=== PATIENT | male | born 1945 | race Caucasian/White ===

== ENCOUNTER 2016-03-11 09:30 | Observation (INO) | payer OTHER ==
[~2016-03-11] VITALS: Ht 180.3 cm; Wt 65.6 kg
[2016-03-11] MEDS ORDERED: SOD CHLORIDE 0.9% 1,000 ML IV STA (09:57)
[2016-03-11] MEDS ORDERED: TIOT18CA INHALATION (10:57)
[2016-03-11 11:38] LABS: ALBUMIN 4.6 g/dl (3.3-4.9); CHLORIDE 103 mmol/L (97-110)
[2016-03-11 11:39] LABS: POTASSIUM 5.3 mmol/L (3.5-5.1); SODIUM 145 mmol/L (135-144)
[2016-03-11 11:41] LABS: ALANINE AMINOTRANSFERASE 159 IU/L (13-69); ALBUMIN/GLOBULIN RATIO 0.92; ALKALINE PHOSPHATASE 175 IU/L (42-121); ANION GAP 24 (8-16); BILIRUBIN,INDIRECT 1.7 mg/dl (0-1.1); BILIRUBIN,TOTAL 9.1 mg/dl (0.2-1.3); BLOOD UREA NITROGEN 35 mg/dl (7-20); CARBON DIOXIDE 23 mmol/L (21-31); CREATININE 1.29 mg/dl (0.61-1.24); TOTAL PROTEIN 9.6 g/dl (6.1-8.1)
[2016-03-11 11:42] LABS: GLUCOSE 99 mg/dl (70-220)
[2016-03-11 11:51] LABS: ACETAMINOPHEN < 10.0 ug/ml (10.0-30.0); ASPARTATE AMINO TRANSFERASE 806 IU/L (15-46)
[2016-03-11 11:52] LABS: ETHANOL < 10.0 mg/dl; SALICYLATE < 1.0 mg/dl (5.0-30.0)
[2016-03-11 12:10] LABS: EOSINOPHILS % 0.2 % (0.0-7.0); HEMATOCRIT 45.1 % (42.0-52.0); HEMOGLOBIN 15.4 g/dl (14.0-18.0); LYMPHOCYTES # 0.2 10^3/ul (0.8-2.9); LYMPHOCYTES % 2.1 % (15.0-51.0); MEAN CORPUSCULAR HGB CONC 34.1 g/dl (32.0-37.0); MEAN CORPUSCULAR VOLUME 99.7 fl (82.0-101.0); MEAN PLATELET VOLUME 9.2 fl (7.4-10.4); MONOCYTE # 0.5 10^3/ul (0.3-0.9); NEUTROPHILS % 93.7 % (39.0-77.0); PLATELET COUNT 140 10^3/UL (140-440); RED BLOOD COUNT 4.52 10^6/ul (4.70-6.10); RED CELL DISTRIBUTION WIDTH 14.6 % (11.5-14.5); UNCORRECTED WBC 11.7 10^3/ul (4.8-10.8); WHITE BLOOD COUNT 11.7 10^3/ul (4.8-10.8)
[2016-03-11 12:12] LABS: CONDITION 1; LH ANALYZER COMMENTS 1; SUSPECT 1
--- NOTE | 2016-03-11 14:51 | ERD ---
ER Documentation Chief Complaint Date/Time DATE: 03/11/16 TIME: 14:43 Chief Complaint PT HERE WITH WEAKNESS, DIARRHEA, SKIN TEARS NOTED ON LEFT ARM/BACK OF HEAD HPI Patient presents with generalized weakness that started yesterday. He states normally he is ambulatory and able to walk his little dog around the block. Today he was unable to do so. He called the ambulance he picked him up. He says the skin tear on his arm and on the back of his head is from where the paramedics tried to pick him up. He denies any direct trauma or injuries. He denies any fevers, chest pain, shortness of breath, headache, nausea, vomiting, dysuria, hematuria, diarrhea, abdominal pain, extremity pain, focal weakness, paresthesias. ROS All systems reviewed and are negative except as per history of present illness. Medications Home Meds Reported Medications Tiotropium [place]* (Spiriva*) 18 Mcg Cap.w.dev, 1 CAP INHALATION DAILY, #30 CAP 03/11/16 Allergies Allergies: Coded Allergies: ibuprofen (Verified Allergy, Intermediate, 03/11/16) PMhx/Soc Hepatitis C Medical and Surgical Hx: Unable to obtain Hx Alcohol Use: Yes Hx Substance Use: No Hx Tobacco Use: No Smoking Status: Never smoker FmHx Family History: No diabetes (CAT scan of the abdomen and pelvis shows a 3.5 cm infrarenal aortic aneurysm without any evidence of rupture or dissection.) Physical Exam Vitals Vital Signs Date Time Temp Pulse Resp B/P Pulse Ox O2 Delivery O2 Flow Rate FiO2 03/11/16 09:56 97.5 133 18 156/103 96 Physical Exam Const: [] Head: Atraumatic Eyes: Normal Conjunctiva ENT: Normal External Ears, Nose and Mouth. Neck: Full range of motion..~ No meningismus. Resp: Clear to auscultation bilaterally Cardio: Regular rate and rhythm, no murmurs Abd: Soft, non tender, non distended. Normal bowel sounds Skin: No petechiae or rashes Back: No midline or flank tenderness Ext: No cyanosis, or edema Neur: Awake and alert Psych: Normal Mood and Affect Result Diagram: 03/11/16 1145 03/11/16 1115 Results 24 hrs Laboratory Tests Test 03/11/16 11:15 03/11/16 11:45 03/11/16 12:29 Acetaminophen Level < 10.0ug/ml Alanine Aminotransferase (ALT/SGPT) 159IU/L Albumin 4.6g/dl Albumin/Globulin Ratio 0.92 Alkaline Phosphatase 175IU/L Anion Gap 24 Aspartate Amino Transf (AST/SGOT) 806IU/L Blood Urea Nitrogen 35mg/dl Calcium Level 10.0mg/dl Carbon Dioxide Level 23mmol/L Chloride Level 103mmol/L Creatinine 1.29mg/dl Direct Bilirubin 7.40mg/dl Ethyl Alcohol Level < 10.0mg/dl Globulin 5.00g/dl Glucose Level 99mg/dl Indirect Bilirubin 1.7mg/dl Potassium Level 5.3mmol/L Salicylates Level < 1.0mg/dl Sodium Level 145mmol/L Total Bilirubin 9.1mg/dl Total Protein 9.6g/dl Basophils # 0.010^3/ul Basophils % 0.0% Blood Morphology Comment Eosinophils # 0.010^3/ul Eosinophils % 0.2% Hematocrit 45.1% Hemoglobin 15.4g/dl Lymphocytes # 0.210^3/ul Lymphocytes % 2.1% Mean Corpuscular Hemoglobin 34.0pg Mean Corpuscular Hemoglobin Concent 34.1g/dl Mean Corpuscular Volume 99.7fl Mean Platelet Volume 9.2fl Monocytes # 0.510^3/ul Monocytes % 4.0% Neutrophils # 11.010^3/ul Neutrophils % 93.7% Nucleated Red Blood Cells # 0.010^3/ul Nucleated Red Blood Cells % 0.0/100WBC Platelet Count 62663^3/UL Red Blood Count 4.5210^6/ul Red Cell Distribution Width 14.6% White Blood Count 11.710^3/ul Ammonia 47umol/l Current Medications Medications (Trade) Dose Ordered Sig/Devika Route PRN Reason Start Time Stop Time Status Last Admin Dose Admin Sodium Chloride (NS) 1,000 ml @ 1,000 mls/hr Q1H STAT IV 03/11/16 09:57 03/11/16 10:56 DC 03/11/16 09:57 Procedures/MDM CAT scan of the abdomen and pelvis shows a 3.5 cm infrarenal aortic aneurysm without any evidence of rupture or dissection. There is also some noted dilatation of the intra-and extrahepatic biliary ducts without any obvious obstruction. CT of the brain shows moderate chronic microvascular ischemic changes without any evidence for acute intracranial abnormality. Chest x-ray demonstrates hyperinflation consistent with COPD, no evidence for acute cardiopulmonary process noted. EKG demonstrates a sinus tachycardia at 120 bpm. Patient has an occasional PVC. He is noted to have a right ventricular conduction delay. No evidence for acute ischemia noted. No old EKG available for comparison. I went over all the test results for the patient. He wanted to be discharged home at this time. I told him in order to be discharged he had to be ambulatory. Patient was able to stand and ambulate on his own at this time. He also stated he could call someone to come pick him up. Departure Diagnosis: Primary Impression: Acute weakness Additional Impression: Hepatitis Condition: Fair Additional Instructions: Please call your business data analyst for follow-up appointment in regards to your liver enzymes and hyperbilirubinemia. Please take all of your medications as previously prescribed. Drink plenty of fluids and stay hydrated. Return to the emergency department if at any time he develop any new or worsening symptoms. LISA FRANKLIN Mar 11, 2016 14:51
[2016-03-11 17:41] LABS: ADD UMIC YES; URINE BILIRUBIN (Dip) 3+ (NEGATIVE); URINE BLOOD (Dip) 3+ (NEGATIVE); URINE COLOR AMBER (YELLOW); URINE GLUCOSE (Dip) NEGATIVE (NEGATIVE); URINE KETONES (Dip) TRACE (NEGATIVE); URINE LEUKOCYTE ESTERASE (Dip) NEGATIVE (NEGATIVE); URINE NITRITE (Dip) POSITIVE (NEGATIVE); URINE TOTAL PROTEIN (Dip) 2+ (NEGATIVE); URINE UROBILINOGEN (Dip) 1.0 E.U./dL (0.1-1.0)
[2016-03-11] MEDS ORDERED: ACETAMINOPHEN 325 MG TAB PO PRN (18:00)
[2016-03-11] MEDS ORDERED: ONDANSETRON 4 MG INJ IV PRN (18:00)
[2016-03-11 18:03] LABS: ICTOTEST POSITIVE (NEGATIVE)
[2016-03-11 18:05] LABS: BACTERIA,URINE MANY; SQUAMOUS EPITHELIAL CELL,UR FEW
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
[2016-03-11 18:16] LABS: BARBITURATES NEGATIVE (NEGATIVE); BENZODIAZEPINES POSITIVE (NEGATIVE); CANNABINOIDS NEGATIVE (NEGATIVE); COCAINE NEGATIVE (NEGATIVE); OPIATES NEGATIVE (NEGATIVE)
--- NOTE | 2016-03-11 19:18 | RADRPT ---
PROCEDURE: XR Chest. CLINICAL INDICATION: Dyspnea TECHNIQUE: Single frontal chest x-ray. COMPARISON: None. FINDINGS: No acute infiltrate, pleural effusion or pneumothorax is identified. Lungs are hyperinflated, sugge sting COPD. Cardiomediastinal silhouette is within normal limits. Aortic atherosclerotic calcifica tion is noted. The osseous structures are unremarkable. IMPRESSION: 1. Hyperinflated lungs, suggesting COPD. 2. Aortic atherosclerosis. 3. No evidence of acute cardiopulmonary process. RPTAT: QQ .Sukumar Bello MD, MD Date Time Electronically viewed and signed by .Sukumar Bello MD, MD on 03/11/2016 14:01 .R/
--- NOTE | 2016-03-11 19:18 | RADRPT ---
PROCEDURE: CT Brain without contrast. CLINICAL INDICATION: Altered mental status TECHNIQUE: Routine CT scan of the brain was performed on a high resolution multi detector scanner without intravenous contrast. One or more of the following dose reduction techniques were used: Auto mated exposure control; Adjustment of the mA and/or kV according to patient size; Use of iterative r econstruction technique. CTDI = 43 mGy. DLP = 720 mGy-cm. COMPARISON: No prior relevant examinations are available for comparison. FINDINGS: Hemorrhage: No evidence of intracranial hemorrhage. Acute ischemic changes: No evidence of acute ischemic changes. Mass effect/Midline shift: None. Parenchymal volume: Mild central parenchymal volume loss is evident. Ventricular system: Concordant with parenchymal volume. Chronic changes: A few small chronic appearing lacunar infarcts of the bilateral basal ganglia are p resent measuring up to 3 mm. There are scattered areas of low attenuation change within the suprate ntorial white matter most compatible with moderate chronic microvascular ischemic changes. Atherosclerotic calcifications of the cavernous portions of both internal carotid arteries are prese nt. Extracranial soft tissues: Unremarkable. Calvarium: No fractures. Thinning of the right parietal calvarium may reflect remote craniotomy. Paranasal sinuses: Visualized paranasal sinuses are clear. Mastoid air cells: Visualized mastoid air cells are clear. IMPRESSION: No acute intracranial abnormalities. Moderate chronic-appearing microvascular ischemic changes of the supratentorial white matter with sm all chronic appearing lacunar infarcts of the bilateral basal ganglia. MRI of the brain may be useful for further evaluation. RPTAT: AADD .Jareth Knox MD, MD Date Time Electronically viewed and signed by .Jareth Knox MD, on 03/11/2016 11:43 .B/
--- NOTE | 2016-03-11 19:19 | RADRPT ---
PROCEDURE: CT Abdomen and Pelvis without contrast. CLINICAL INDICATION: Abdominal pain TECHNIQUE: CT of the abdomen and pelvis was performed on a multi-detector scanner without IV contr ast. Coronal and sagittal images were reformatted from the axial data set. One or more of the foll owing dose reduction techniques were used: automated exposure control, adjustment of the mA and/or kV according to patient size, use of iterative reconstruction technique. CTDI = 11.38 mGy. DLP = 64 2.04 mGy-cm. COMPARISON: None. FINDINGS: CT abdomen: Bibasilar pulmonary emphysema is noted. The heart size is normal, without pericardial effusion. Co ronary arterial calcifications are present. Cholelithiasis is noted, without evidence for cholecyst itis. There is mild dilatation of intra and extrahepatic biliary ducts - common bile duct maximal d iameter is 11 mm. No focal hepatic mass is identified. Pancreas, spleen and adrenal glands are unr emarkable. Bilateral benign renal cysts are noted, some which appear hemorrhagic. There is mild bi lateral hydroureteronephrosis to the level of the urinary bladder. No urinary calculus is identifie d. The stomach is partially collapsed, but appears grossly unremarkable. 3.5 cm diameter infrarenal aortic aneurysm is identified. Aortoiliac atherosclerotic calcifications are present. There is no retroperitoneal hematoma or lymphadenopathy. The dayanara hepatis region is clear. CT pelvis: No bowel obstruction, free intraperitoneal air or abscess is identified. There is no diverticulosis , diverticulitis, colitis or appendicitis. Urinary bladder is significantly distended, concerning f or urinary retention. No pelvic mass, free fluid or lymphadenopathy is identified. The surrounding osseous structures are remarkable for diffuse degenerative spondylosis of the spine. There is chronic bilateral L4 spondylolysis, with grade II anterolisthesis at L4-5. No osteolytic or osteoblastic lesion is detected. IMPRESSION: 1. Cholelithiasis is noted, without evidence for cholecystitis. 2. There is mild dilatation of intra and extrahepatic biliary ducts, as above - obstructive stone i n the distal common bile duct is not excluded. Consider MRCP for further evaluation. 3. Urinary bladder is significantly distended, concerning for urinary retention. There is mild linda ateral hydroureteronephrosis, without evidence of urinary calculus, likely representing urinary back flow secondary to bladder distension. 4. 3.5 cm diameter infrarenal aortic aneurysm is identified, without evidence for rupture. Aortoil iac atherosclerotic calcifications are present. 5. Bibasilar pulmonary emphysema is noted. 6. There is chronic bilateral L4 spondylolysis, with grade II anterolisthesis at L4-5. RPTAT: QQ .Sukumar Bello MD, MD Date Time Electronically viewed and signed by .Sukumar Bello MD, MD on 03/11/2016 14:00 .R/
[2016-03-11 20:30] VITALS: PULSE 100; TEMP 98.2
[2016-03-11 22:00] VITALS: Ht 180.3 cm; Wt 65.6 kg
[2016-03-11 23:08] VITALS: BP 144/61; RESP 24
[2016-03-12] MEDS ORDERED: IBUPROFEN 200 MG TAB PO PRN
[2016-03-12] MEDS ORDERED: ZOLPIDEM 5 MG TAB PO PRN
[2016-03-12] MEDS: METOPROLOL 25 MG TAB PO SCH ×2 (01:14→08:15)
[2016-03-12] MEDS: DEXTROSE 5%-0.45% NACL 1,000 ML IV SCH ×2 (01:14→11:48)
[2016-03-12] MEDS ORDERED: ALPRAZOLAM 1 MG TAB PO SCH (06:00)
[2016-03-12] MEDS: ALPRAZOLAM 0.25 MG TAB PO SCH ×3 (06:25→21:00)
[2016-03-12 06:26] LABS: BASOPHILS % 0.1 % (0.0-2.0); HEMATOCRIT 41.7 % (42.0-52.0); HEMOGLOBIN 14.1 g/dl (14.0-18.0); LYMPHOCYTES # 0.5 10^3/ul (0.8-2.9); LYMPHOCYTES % 4.5 % (15.0-51.0); MEAN CORPUSCULAR HEMOGLOBIN 34.3 pg (29.0-33.0); MEAN CORPUSCULAR VOLUME 101.1 fl (82.0-101.0); MEAN PLATELET VOLUME 10.2 fl (7.4-10.4); MONOCYTE # 0.6 10^3/ul (0.3-0.9); MONOCYTES % 5.4 % (0.0-11.0); NEUTROPHIL # 9.7 10^3/ul (1.6-7.5); PLATELET COUNT 111 10^3/UL (140-440); RED BLOOD COUNT 4.12 10^6/ul (4.70-6.10); RED CELL DISTRIBUTION WIDTH 15.1 % (11.5-14.5); UNCORRECTED WBC 10.8 10^3/ul (4.8-10.8); WHITE BLOOD COUNT 10.8 10^3/ul (4.8-10.8)
[2016-03-12] MEDS: IBUPROFEN 200 MG TAB PO PRN ×2 (06:26→20:54)
[2016-03-12 06:33] LABS: CONDITION 1; LH ANALYZER COMMENTS 1; SUSPECT 1
[2016-03-12 06:36] LABS: INR 1.16; PROTIME 14.9 Sec (12.2-14.2); PT RATIO 1.2
[2016-03-12 06:37] LABS: PARTIAL THROMBOPLASTIN TIME 28.5 Sec (25.0-35.0)
[2016-03-12 06:44] LABS: POTASSIUM 4.5 mmol/L (3.5-5.1)
[2016-03-12 06:47] LABS: CALCIUM 8.5 mg/dl (8.4-10.2); CREATININE 1.16 mg/dl (0.61-1.24)
[2016-03-12 07:22] VITALS: BP 144/67; RESP 18
[2016-03-12] MEDS ORDERED: CLOBETASOL 0.05% 15 GM OINT TOP SCH (09:00)
[2016-03-12] MEDS ORDERED: TIOTROPIUM 18 MCG CAPSULE INHA DEV INH SCH (09:00)
[2016-03-12 12:04] LABS: BILIRUBIN,INDIRECT 1.6 mg/dl (0-1.1); BILIRUBIN,TOTAL 4.6 mg/dl (0.2-1.3); TOTAL PROTEIN 6.3 g/dl (6.1-8.1)
[2016-03-12] MEDS ORDERED: MULTIVITAMINS THERAPEUTIC TAB PO SCH (14:30)
[2016-03-12] MEDS ORDERED: CYANOCOBALAMIN 100 MCG TAB PO SCH (14:30)
[2016-03-12] MEDS ORDERED: FOLIC ACID 1 MG TAB PO SCH (14:30)
--- NOTE | 2016-03-12 21:11 | PDOCDIS ---
Discharge Instructions CONDITION Patient Condition: Good HOME CARE INSTRUCTIONS: Diet Instructions: Low Fat /CholesterolSpecial Diet: 2g Na ACTIVITY: Activity Restrictions: Slowly Increase Activity Bathing Restrictions: Shower FOLLOW UP/APPOINTMENTS Appointments F/u with PCP in 2 weeks Follow-up with shirt finisher in 2 weeks. SCHOOL/WORK RELEASE May return to School/Work with: No Restrictions NAMITA LI MD Mar 12, 2016 21:11
== END 2016-03-12 21:30 ==
LOC: E/R 09:30 → PP2 17:34
PROVIDERS: ADMIT Internal Medicine; ATTEND Internal Medicine
DX: R53.1 Weakness (principal); I67.82 Cerebral ischemia
CPT/HCPCS: 36415; 70450; 71010; 74176; 80048; 80053; 80061; 80076; 81001; 82140; 85025; 85610; 85730; 93005; 99285; G0378; G0478; G0479; J3420; J7030; 80306; 80307; 81003; 99217